=== PATIENT | male | born 1970 | race Two or more races ===

== ENCOUNTER 2021-07-24 08:22 | Outpatient (CLI) | payer OTHER | END 2021-07-24 08:36 | disposition home or self-care (01) | LOC: TOM 08:22 | PROVIDERS: ATTEND Specialist | DX: K43.2 Incisional hernia without obstruction or gangrene (principal) ==

== ENCOUNTER 2022-09-16 20:03 | Emergency (ER) | payer OTHER ==
[~2022-09-16] VITALS: Ht 180.3 cm; Wt 130.6 kg
[2022-09-16] MEDS ORDERED: JANUMET XR 50-1 EAC1 PO (20:47)
[2022-09-16] MEDS ORDERED: LOSARTAN POTAS100 MG PO (20:48)
== END 2022-09-17 02:04 | disposition home or self-care (01) ==
LOC: ER 20:03
DX: S61.221A Laceration with foreign body of left index finger without damage to nail, initial encounter (principal); X58.XXXA Exposure to other specified factors, initial encounter; Y93.89 Activity, other specified; Y92.89 Other specified places as the place of occurrence of the external cause; Y99.9 Unspecified external cause status; I10 Essential (primary) hypertension; E11.9 Type 2 diabetes mellitus without complications; Z79.84 Long term (current) use of oral hypoglycemic drugs